=== PATIENT | female | born 1945 | race Caucasian/White ===

== ENCOUNTER → 2023-09-24 | Outpatient (CLI) | payer MEDICARE ==
[2023-09-24 15:59] LABS: ALBUMIN 3.8 G/DL (3.2-5.2); ALKALINE PHOSPHATASE 118 U/L (46-116); ALT/SGPT 26 U/L (7.0-40); AST/SGOT 27 U/L (<34); BILIRUBIN,TOTAL 0.2 MG/DL (0.3-1.2); BLOOD UREA NITROGEN 18 MG/DL (9-23); CALCIUM LEVEL 9.5 MG/DL (8.3-10.6); CARBON DIOXIDE LEVEL 26 MMOL/L (20-31); CHLORIDE LEVEL 107 MMOL/L (98-107); CREATININE FOR GFR 0.92 MG/DL (0.55-1.30); GLOMERULAR FILTRATION RATE > 60.0 (>39); GLUCOSE, FASTING 150 MG/DL (74-106); POTASSIUM SERUM 4.4 MMOL/L (3.5-5.1); SODIUM LEVEL 140 MMOL/L (136-145); TOTAL PROTEIN 7.2 G/DL (5.7-8.2)
[2023-09-24 16:01] LABS: THYROID STIMULATING HORMONE 3.565 uIU/ML (0.55-4.78); TOTAL 25(OH) VITAMIN D 23.1 NG/ML (20.0-100.0)
[2023-09-24 16:04] LABS: T UPTAKE 29.1 % (22.5-37.0)
[2023-09-24 16:23] LABS: FREE THYROXINE INDEX 2.9 % (1.3-4.8)
[2023-09-24 16:28] LABS: HEMOGLOBIN A1c 8.4 % (4.0-6.0)
[2023-09-28 16:08] LABS: CREATININE URINE 75.3 mg/dL (Not Estab.); VITAMIN D 1,25 DIHYDROXY 28.8 pg/mL (24.8-81.5)
== END ==
LOC: M PLALAB 12:50
PROVIDERS: ATTEND Orthopaedic Surgery
DX: S42.295D Other nondisplaced fracture of upper end of left humerus, subsequent encounter for fracture with routine healing (principal); M19.012 Primary osteoarthritis, left shoulder; Y92.9 Unspecified place or not applicable; Y93.9 Activity, unspecified